=== PATIENT | female | born 1945 | race Caucasian/White ===

== ENCOUNTER → 2017-08-24 | Outpatient (CLI) | payer MEDICARE ==
[~2017-08-24] MED LIST: ATOR-2 PO; SULF1TAB24 PO
== END ==
LOC: CFH 07:46
PROVIDERS: ATTEND Family Medicine
DX: M25.551 Pain in right hip (principal); K57.30 Diverticulosis of large intestine without perforation or abscess without bleeding

== ENCOUNTER → 2018-07-03 | Outpatient (CLI) | payer MEDICARE | END | disposition home or self-care (01) | LOC: CFH 11:28 | PROVIDERS: ATTEND Obstetrics & Gynecology | DX: Z12.31 Encounter for screening mammogram for malignant neoplasm of breast (principal) | CPT/HCPCS: 77067 ==

== ENCOUNTER → 2019-03-01 | Outpatient (CLI) | payer MEDICARE ==
[~2019-03-01] MED LIST changes: +GADOTERATE 10 MMOL/20 ML VIAL ONE
== END | disposition home or self-care (01) ==
LOC: CFH 12:42
PROVIDERS: ATTEND Registered Nurse
DX: R41.3 Other amnesia (principal)
CPT/HCPCS: 70553; A9575

== ENCOUNTER → 2019-10-25 | Outpatient (CLI) | payer MEDICARE ==
[~2019-10-25] MED LIST changes: -GADOTERATE 10 MMOL/20 ML VIAL ONE
== END | disposition home or self-care (01) ==
LOC: CFH 10:08
PROVIDERS: ATTEND Obstetrics & Gynecology
DX: Z12.31 Encounter for screening mammogram for malignant neoplasm of breast (principal)
CPT/HCPCS: 77067

== ENCOUNTER 2020-07-31 09:48 | Outpatient (CLI) | payer MEDICARE ==
[~2020-07-31 09:48] MED LIST changes: +SULF-23 PO; -SULF1TAB24 PO
== END 2020-07-31 23:59 | disposition home or self-care (01) ==
LOC: CFH 09:48
PROVIDERS: ATTEND Physician Assistant
DX: M81.0 Age-related osteoporosis without current pathological fracture (principal); M85.80 Other specified disorders of bone density and structure, unspecified site; R10.2 Pelvic and perineal pain
CPT/HCPCS: 76830; 77080